=== PATIENT | female | born 1985 | race Asian ===

== ENCOUNTER 2017-04-26 12:55 | Inpatient (IN) | payer OTHER ==
[~2017-04-26] VITALS: Ht 162.6 cm; Wt 102.1 kg
--- NOTE | 2017-04-26 13:10 | NUR ---
MS RN OPENING NOTE PATIENT IS ALERT AND ORIENTED x4. NO SKIN ISSUES PRESENT. NO SOB OR DISTRESS NOTED AT THIS TIME. NO PAIN AT THIS TIME. ABLE TO COMMUNICATE NEEDS. PATIENT IS DIRECT ADMIT FROM [place]. PER PATIENT HAS HAD COUGH FOR 6 DAYS AND HAS NOT GOTTEN BETTER. PATIETN STATES SHE TAKES ALBUTEROL FOR HER ASTHMA BUT COUGH IS STILL WORSE. IV ON RIGHT AC 20G INTACT AND PATENT NO REDNESS OR SWELLING NOTED. AWAITING FOR MD ORDERS AT THIS TIME.
[2017-04-26] MEDS ORDERED: HYDROCODONE/APAP 5/325MG 1 EACH TABLET PO PRN (13:30)
[2017-04-26] MEDS ORDERED: ZOLPIDEM TARTRATE 5 MG TABLET PO PRN (13:30)
[2017-04-26] MEDS ORDERED: Z GUARD REMEDY 2 OZ OINT TP PRN (13:30)
[2017-04-26] MEDS ORDERED: MAG HYDROX/AL HYDROX/SIMETH 30 ML UDC PO PRN (13:30)
[2017-04-26] MEDS ORDERED: ALBUTEROL FS 2.5 MG/0.5 ML VIAL.NEB NEB PRN (13:30)
[2017-04-26] MEDS ORDERED: IPRATROPIUM NEB FS 0.5 MG/2.5 ML AMPUL.NEB NEB PRN (13:30)
[2017-04-26] MEDS ORDERED: ONDANSETRON HCL/PF 4 MG/2 ML VIAL IVP PRN (13:30)
[2017-04-26] MEDS ORDERED: MAGNESIUM HYDROXIDE 30 ML UDC PO PRN (13:30)
[2017-04-26] MEDS ORDERED: ACETAMINOPHEN 325 MG TABLET PO PRN (13:30)
[2017-04-26] MEDS: methylPREDNISolone SOD SUCC 125 MG/2ML VIAL IV SCH ×2 (14:17→21:17)
[2017-04-26] MEDS: IV NS 0.9% 1,000 ML IV PRN (14:21)
--- NOTE | 2017-04-26 15:00 | NUR ---
MS RN NOTE MD ORDERS FOR BREATHING TREATMENT NOTED AND CARRIED OUT
--- NOTE | 2017-04-26 15:30 | NUR ---
MS RN NOTE MRSA SWAB OBTAINED. LAB AWARE
[2017-04-26] MEDS: CEFTRIAXONE 1 G in IV D5W 50 ML IV SCH (15:32)
[2017-04-26 16:00] VITALS: BP 111/69
[2017-04-26] MEDS: AZITHROMYCIN 500 MG in IV D5W 250 ML IV SCH (16:21)
[2017-04-26] MEDS ORDERED: FLUT1DIS5 IH (16:43)
[2017-04-26] MEDS ORDERED: ALBU18HF2 IH (16:43)
--- NOTE | 2017-04-26 18:26 | NUR ---
MS RN CLOSING NOTE PATIENT IS ALERT AND ORIENTED x4. NO PAIN AT THIS TIME. NO SOB OR DISTRESS NOTED. CALL LIGHT WITHIN REACH AT ALL TIMES. SAFETY MEASURES IMPLEMENTED. ABLE TO COMMUNICATE NEEDS. IV FLUIDS RUNNING AT 75 ML/HR TOLERATING WELL, IV INTACT WITH NO REDNESS OR SWELLING NOTED. BREATHING TREATMENTS Q6H ROUTINE AND PRN. PATIENT HAS PERIODS OF CONTINUOUS COUGHING, MD AWARE. WILL ENDORSE TO CHEMISTRY DEPARTMENT CHAIR NURSE FOR G[facility]
--- NOTE | 2017-04-26 19:15 | NUR ---
MS RN NOTES PATIENT IS ALERT AND ORIENTED x 4. VERBALLY RESPONSIVE. FAMILY MEMBER AT BEDSIDE. NO SOB OR DISTRESS NOTED AT THIS TIME. NEEDS. SKIN IS INTACT. IV SITE ON RIGHT AC 20G INTACT AND PATENT, NO S/S OF INFILTRATION NOTED. IVF INFUSING WELL. ALL NEEDS ATTENDED AND MET. KEPT COMFORTABLE. AFEBRILE. CALL LIGHT WITHIN REACH . WILL CONTINUE TO MONITOR.
--- NOTE | 2017-04-26 19:20 | NUR ---
PT'S O2 SATURATION IS 93 % AT THIS TIME, PT ON RA, REFUSED 02 @ 2LPM VIA NC AT THIS TIME, ACCDG TO THE PT 93 % IS HER BASELINE O2 SATURATION. PT REMAINS A/O X 4. VERBALLY RESPONSIVE, NO DISTRESS, NO SOB, WITH ON AND OFF EPISODE OF COUGH. WILL CONT TO MONITOR.
[2017-04-26] MEDS: ALBUTEROL FS 2.5 MG/0.5 ML VIAL.NEB NEB SCH (19:56)
[2017-04-26] MEDS: IPRATROPIUM NEB FS 0.5 MG/2.5 ML AMPUL.NEB NEB SCH (19:56)
[2017-04-26 20:00] VITALS: BP 115/75
[2017-04-27] MEDS: ALBUTEROL FS 2.5 MG/0.5 ML VIAL.NEB NEB SCH ×4 (00:57→19:52)
[2017-04-27] MEDS: IPRATROPIUM NEB FS 0.5 MG/2.5 ML AMPUL.NEB NEB SCH ×4 (00:57→19:52)
--- NOTE | 2017-04-27 01:45 | NUR ---
PT WITH ON AND OFF EPISODES OF COUGHING, PT AWAKE , A/O X 4 AT THIS TIME. NO DISTRESS , NO SOB NOTED. OFFERED AMBIEN BUT PT DOESN'T WANT TO TAKE IT, RISK AND BENEFITS EXPLAINED, PT DOESN'T WANT TO TAKE THE AMBIEN AND VERBALIZED THAT SHE'S OK AND SHE'S JUST WATCHING HER FAVORITE SHOW AT THIS TIME. CALL LIGHT WITHIN REACH. WILL CONT TO MONITOR.
[2017-04-27] MEDS: methylPREDNISolone SOD SUCC 125 MG/2ML VIAL IV SCH ×3 (04:42→21:11)
--- NOTE | 2017-04-27 06:21 | NUR ---
MS RN NOTES PATIENT IS ALERT AND ORIENTED x 4. VERBALLY RESPONSIVE. NO SOB OR DISTRESS NOTED AT THIS TIME. STILL NOTED WITH ON AND OFF EPISODES OF COUGHING. SKIN IS INTACT. IV SITE ON RIGHT AC 20G INTACT AND PATENT, NO S/S OF INFILTRATION NOTED. IVF INFUSING WELL. PT IS AMBULATORY. ALL NEEDS ATTENDED AND MET. KEPT COMFORTABLE. AFEBRILE. CALL LIGHT WITHIN REACH . WILL ENDORSE TO NEXT SHIFT FOR [facility].
[2017-04-27 06:32] LABS: HEMATOCRIT 37 % (33-45); HEMOGLOBIN 12.4 g/dL (11.5-14.8); LYMPHOCYTES # (AUTO) 1.5 /CMM (0.8-4.8); LYMPHOCYTES % (AUTO) 6.7 % (20.0-44.0); MEAN CORPUSCULAR HEMOGLOBIN 28 PG (26.0-33.0); MEAN CORPUSCULAR HGB CONC 33 g/dl (31.0-36.0); MEAN CORPUSCULAR VOLUME 85 fL (82-100); MONOCYTES # (AUTO) 0.6 /CMM (0.1-1.30); MONOCYTES % (AUTO) 2.6 % (2.0-12.0); NEUTROPHILS # (AUTO) 20.1 /CMM (1.8-8.9); NEUTROPHILS % (AUTO) 90.7 % (43.0-81.0); PLATELET COUNT (AUTO) 372 /CMM (150-450); RDW COEFFICIENT OF VARIATION 13.5 (11.5-15.0); RED BLOOD CELL COUNT(AUTO) 4.39 MIL/uL (4.0-5.2); WHITE BLOOD COUNT (AUTO) 22.1 K/uL (4.3-11.0)
[2017-04-27 06:52] LABS: THYROID STIMULATING HORMONE 0.11 uIU/mL (0.358-3.74)
[2017-04-27 06:53] LABS: ALBUMIN 2.9 g/dL (3.4-5.0); BILIRUBIN,TOTAL 0.2 mg/dL (0.2-1.0); CALCIUM, SERUM 9.2 mg/dL (8.5-10.1); CREATININE 0.8 mg/dL (0.6-1.3); MAGNESIUM 2.2 mg/dL (1.8-2.4); PHOSPHORUS 2.8 mg/dL (2.5-4.9); POTASSIUM 3.6 mmol/L (3.5-5.1); TOTAL PROTEIN, SERUM 7.6 g/dL (6.4-8.2)
[2017-04-27] MEDS: IV NS 0.9% 1,000 ML IV PRN (07:18)
--- NOTE | 2017-04-27 07:32 | NUR ---
MS RN OPENING NOTE PATIENT IS ALERT AND ORIENTED x4. NO PAIN AT THIS TIME. NO SOB OR DISTRESS NOTED. CALL LIGHT WITHIN REACH. SAFETY MEASURES IMPLEMENTED. ABLE TO COMMUNICATE NEEDS. IV ON RIGHT AC INTACT AND PATENT, FLUIDS RUNNING AT 75 ML/HR AT THIS TIME. TOLERATING WELL. PATIENT HAS NON-PRODUCTIVE COUGH, BREATHING TREATMENTS ROUTINE AND PRN AVAILABLE. WILL CONTINUE TO MONITOR THROUGHOUT SHIFT
[2017-04-27 08:00] VITALS: BP 101/78
[2017-04-27 09:48] LABS: LYMPHOCYTES % (MANUAL) 8 % (16-48); MONOCYTES % (MANUAL) 4 % (0-11.0); NEUTROPHILS % (MANUAL) 88 (42-76)
[2017-04-27] MEDS: CEFTRIAXONE 1 G in IV D5W 50 ML IV SCH (15:11)
[2017-04-27 16:00] VITALS: BP 110/68
[2017-04-27] MEDS: AZITHROMYCIN 500 MG in IV D5W 250 ML IV SCH (16:37)
[2017-04-27] MEDS: LACTOBACILLUS RHAMNOSUS GG 1 EACH CAP.SPRINK PO SCH (16:39)
--- NOTE | 2017-04-27 18:34 | NUR ---
MS RN CLOSING NOTE PATIENT ALERT AND ORIENTED x4. NO PAIN AT THIS TIME. NO SOB OR DISTRESS NOTED. PATIENT HAS A LITTLE WHEEZING PRESENT AT THIS TIME. IV ON RIGHT AC INFILTRATED, NEW IV STARTED ON IV LEFT AC 22G. INTACT AND PATENT, FLUSHES WELL. WILL HAVE CHEST X-RAY IN THE MORNING. LABS IN AM. PATIENT IS DOING WELL ON STEROIDS AND BREATHING TREATMENTS. ABLE TO COMMUNICATE NEEDS. ALL DUE MEDICATIONS GIVEN ORDERED. ALL NURSING CARE NEEDS ATTENDED TO. CALL LIGHT WITHIN REACH AT ALL TIMES. SAFETY MEASURES IMPLEMENTED. WILL ENDORSE TO MANAGER SUBWAY NURSE FOR G[facility]
--- NOTE | 2017-04-27 19:20 | NUR ---
MS RN NOTES RECEIVED PATIENT IN BED, ALERT AND ORIENTED x 4, ABLE TO VERBALIZE NEEDS. FAMILY MEMBERS AT BEDSIDE. NO SOB OR DISTRESS NOTED AT THIS TIME. NEEDS. SKIN IS INTACT. IV SITE ON LEFT AC INTACT AND PATENT, NO S/S OF INFILTRATION NOTED. IVF INFUSING WELL. STILL NOTED WITH ON AND OFF EPISODE OF COUGH, BUT PER PT HER COUGH IS GETTING BETTER COMPARED TO 2 DAYS BEFORE. SKIN IS INTACT. ALL NEEDS ATTENDED AND MET. KEPT COMFORTABLE. AFEBRILE. CALL LIGHT WITHIN REACH . WILL CONTINUE TO MONITOR.
[2017-04-27 20:00] VITALS: BP 130/72
[2017-04-27 20:07] VITALS: BP 130/72
[2017-04-28] MEDS: IPRATROPIUM NEB FS 0.5 MG/2.5 ML AMPUL.NEB NEB SCH ×2 (01:57→07:29)
[2017-04-28] MEDS: ALBUTEROL FS 2.5 MG/0.5 ML VIAL.NEB NEB SCH ×2 (01:57→07:29)
[2017-04-28] MEDS: methylPREDNISolone SOD SUCC 125 MG/2ML VIAL IV SCH (04:57)
[2017-04-28] MEDS: IV NS 0.9% 1,000 ML IV PRN (06:19)
--- NOTE | 2017-04-28 06:27 | NUR ---
MS RN NOTES PATIENT SITTING IN BED, ALERT AND ORIENTED x 4, ABLE TO VERBALIZE NEEDS. NO SOB OR DISTRESS NOTED AT THIS TIME. NEEDS. SKIN IS INTACT. IV SITE ON LEFT AC INTACT AND PATENT, NO S/S OF INFILTRATION NOTED. IVF INFUSING WELL. STILL NOTED WITH ON AND OFF EPISODE OF COUGH. BREATHING TX GIVEN BY RT ORDERED, PT TRE WELL. . SKIN IS INTACT. ALL NEEDS ATTENDED AND MET. KEPT COMFORTABLE. AFEBRILE. CALL LIGHT WITHIN REACH . WILL ENDORSE TO NEXT SHIFT FOR [facility].
[2017-04-28 07:05] LABS: CALCIUM, SERUM 9.4 mg/dL (8.5-10.1); CREATININE 0.8 mg/dL (0.6-1.3); MAGNESIUM 2.3 mg/dL (1.8-2.4); PHOSPHORUS 3.2 mg/dL (2.5-4.9); POTASSIUM 3.8 mmol/L (3.5-5.1)
[2017-04-28 07:11] LABS: HEMATOCRIT 38 % (33-45); HEMOGLOBIN 12.5 g/dL (11.5-14.8); LYMPHOCYTES # (AUTO) 1.5 /CMM (0.8-4.8); LYMPHOCYTES % (AUTO) 7.1 % (20.0-44.0); MEAN CORPUSCULAR HEMOGLOBIN 28 PG (26.0-33.0); MEAN CORPUSCULAR HGB CONC 33 g/dl (31.0-36.0); MEAN CORPUSCULAR VOLUME 86 fL (82-100); MONOCYTES % (AUTO) 4.9 % (2.0-12.0); NEUTROPHILS # (AUTO) 18.6 /CMM (1.8-8.9); PLATELET COUNT (AUTO) 402 /CMM (150-450); RDW COEFFICIENT OF VARIATION 13.6 (11.5-15.0); RED BLOOD CELL COUNT(AUTO) 4.42 MIL/uL (4.0-5.2); WHITE BLOOD COUNT (AUTO) 21.1 K/uL (4.3-11.0)
--- NOTE | 2017-04-28 07:22 | NUR ---
RN OPEN NOTES RECEIVED REPORT FROM CLINIC COORDINATOR NURSE. PATIENT IS AWAKE, IN BED. ALERT AND ORIENTED TO NAME, PLACE AND TIME. NO SIGNS AND SYMPTOMS OF DISTRESS; PATIENT IS COUGHING. BED IN LOW POSITION, LOCKED AND TWO SIDE RAILS ARE UP. CALL LIGHT WITHIN REACH. WILL CONTINUE TO MONITOR AND ASSES PATIENT THROUGH OUT MY SHIFT.
[2017-04-28 08:00] VITALS: BP 110/66
[2017-04-28] MEDS: LACTOBACILLUS RHAMNOSUS GG 1 EACH CAP.SPRINK PO SCH (08:29)
[2017-04-28] MEDS ORDERED: LEVO750T21 PO (10:24)
[2017-04-28] MEDS ORDERED: METH4TAB17 PO (10:24)
[2017-04-28] MEDS ORDERED: PRED20TA PO (10:24)
[2017-04-28] MEDS ORDERED: GUAI600T PO (10:24)
--- NOTE | 2017-04-28 11:01 | NUR ---
COMPRESSED AIR PILE DRIVER OPERATOR NOTES PATIENT DISCHARGE ORDER RECEIVED AND CARRIED OUT. PATIENT IS LEAVING IN A STABLE CONDITION. NO SIGNS AND SYMPTOMS OF DISTRESS OR PAIN. DISCHARGE INSTRUCTION EXPLAINED TO PATIENT AND PATIENT VERBALIZED UNDERSTANDING. ALL PERSONAL BELONGING WITH PATIENT AT TIME OF DISCHARGE. DISCHARGE INSTRUCTION AND BELONGING FORMS SIGNED BY PATIENT AND PLACED IN THE CHART. PRESCRIPTION GAVE TO PATIENT. IV SITE REMOVED. ID BAND REMOVED. PATIENTS MOTHER AND SISTER TOOK PATIENT HOME VIA A PRIVATE CAR.
== END 2017-04-28 11:08 | disposition home or self-care (01) | DRG 133 ==
LOC: MEDSG2 12:55
DX: J96.00 Acute respiratory failure, unspecified whether with hypoxia or hypercapnia (principal); J18.9 Pneumonia, unspecified organism; E66.01 Morbid (severe) obesity due to excess calories; J45.901 Unspecified asthma with (acute) exacerbation; Z68.38 Body mass index [BMI] 38.0-38.9, adult
CPT/HCPCS: 36415; 71010-TC; 80048-TC; 80053-TC; 80061-TC; 83735-TC; 84100-TC; 84443-TC; 85025-TC; 87081-TC; J0456; J0696; J2930; J7030; J7060; Z7610